=== PATIENT | male | born 1965 | race American Indian/Alaskan Native ===

== ENCOUNTER 2021-03-10 16:15 | Emergency (ER) | payer SELFPAY ==
--- NOTE | 2021-03-10 20:02 | Emergency Department Report ---
ED Male HPI - General Chief complaint: Urogenital-Male Stated complaint: PAIN WHEN URINATING Time Seen by Provider: 03/10/21 19:56 Source: patient Mode of arrival: Ambulatory Limitations: No Limitations - History of Present Illness Initial comments: 56-year-old male with a past medical history of hypertension, but noncompliant with medication for about 3 years presents to the ER today with complaints of urinary frequency, hesitancy, urgency and dysuria as well as suprapubic abdominal discomfort. Patient states that his symptoms started couple days ago. He denies any associated back pain or flank pain, nausea, vomiting, fever, chills, testicular pain or swelling. He denies any penile discharge. He denies any known history of prostate issues. MD Complaint: dysuria, other (Urinary frequency and urgency) -: days(s) - Related Data Previous Rx's Medication Instructions Recorded Last Taken Type Amlodipine Besylate [Norvasc] 5 mg PO DAILY #30 tablet 03/10/21 Unknown Rx Allergies Allergy/AdvReac Type Severity Reaction Status Date / Time No Known Allergies Allergy Unverified 03/10/21 19:41 ED Review of Systems ROS: Stated complaint: PAIN WHEN URINATING Other details as noted in HPI Comment: All other systems reviewed and negative Constitutional: denies: chills, fever Eyes: denies: eye pain, eye discharge, vision change ENT: denies: ear pain, throat pain, dental pain, hearing loss, epistaxis, congestion Respiratory: denies: cough, shortness of breath, SOB with exertion, SOB at rest, wheezing Cardiovascular: denies: chest pain, palpitations Gastrointestinal: abdominal pain. denies: nausea, vomiting, diarrhea, constipation, hematemesis, melena, hematochezia Genitourinary: urgency, dysuria, frequency, other (Hesitancy). denies: hematuria, discharge, testicular pain, testicular mass Musculoskeletal: denies: back pain, joint swelling, arthralgia, myalgia Skin: denies: rash, lesions, change in color, change in hair/nails, pruritus Neurological: denies: headache, weakness, numbness, paresthesias, confusion, abnormal gait, vertigo Psychiatric: denies: anxiety, depression, auditory hallucinations, visual hallucinations, homicidal thoughts, suicidal thoughts Hematological/Lymphatic: denies: easy bleeding, easy bruising, swollen glands ED Past Medical Hx - Past Medical History Previous Medical History?: Yes Hx Hypertension: Yes - Medications Home Medications: Home Medications Medication Instructions Recorded Confirmed Last Taken Type Amlodipine Besylate [Norvasc] 5 mg PO DAILY #30 tablet 03/10/21 Unknown Rx ED Physical Exam - General Limitations: No Limitations General appearance: alert, in no apparent distress - Head Head exam: Present: atraumatic, normocephalic, normal inspection - Eye Eye exam: Present: normal appearance, PERRL, EOMI Pupils: Present: normal accommodation - ENT ENT exam: Present: normal exam, mucous membranes moist - Respiratory Respiratory exam: Absent: respiratory distress - Cardiovascular Cardiovascular Exam: Present: regular rate, normal rhythm, normal heart sounds - GI/Abdominal GI/Abdominal exam: Present: soft, tenderness (Mild suprapubic abdominal tenderness without guarding or rebound). Absent: distended - Neurological Exam Neurological exam: Present: alert, oriented X3, CN II-XII intact, normal gait - Psychiatric Psychiatric exam: Present: normal affect, normal mood - Skin Skin exam: Present: intact ED Course Vital Signs 03/10/21 03/10/21 03/10/21 19:42 20:56 22:50 Temperature 98.2 F 97.6 F Pulse Rate 102 H 81 Respiratory 16 18 18 Rate Blood Pressure 191/109 Blood Pressure 157/100 [Left] O2 Sat by Pulse 98 95 Oximetry ED Medical Decision Making - Lab Data Result diagrams: 03/10/21 21:48 03/10/21 21:48 - Medical Decision Making 2132: Post void bladder scan shows a residual of 1000ml Bravo catheter with leg bag ordered. 2146: Patient feeling much better after Bravo placement. Bravo bag so fat has 700cc urine . CBC and CMP pending 2230: CMP and CBC unremarkable. repeat UA from cath does not suggest UTI. repeat abdominal exam show soft non tender abdomen. Discussed lab results with patient. Informed him that he will be discharged home with a Bravo catheter in place with a leg bag and recommend that he follows up with the urologist next week for further evaluation. Patient expressed understanding and agree with plan. Patient was stable at time of discharge Critical care attestation.: If time is entered above; I have spent that time in minutes in the direct care of this critically ill patient, excluding procedure time. ED Disposition Clinical Impression: Urinary retention, Uncontrolled hypertension, Non compliance w medication regimen Disposition: HOME / SELF CARE / HOMELESS Is pt being admited?: No Does the pt Need Aspirin: No Condition: Stable Instructions: Acute Urinary Retention, Male, [id number], Managing Your Hypertension, Hypertension, Adult, Hypertension (ED) Additional Instructions: Recommend that you keep the Bravo catheter with a leg bag in place until you can follow-up with a urologist. Follow-up with a urologist given any discharge instructions next week. It is important that you take the blood pressure medication prescribed to you today. Follow-up with your primary care doctor for continued monitoring of your high blood pressure. Return to the ER if your symptoms changes or worsens in any way. Prescriptions: Amlodipine Besylate [Norvasc] 5 mg PO DAILY #30 tablet Referrals: TITI MALDONADO MD [Staff Physician] - 3-5 Days ZAID RIGGS MD [Staff Physician] - 3-5 Days Time of Disposition: 22:22
[2021-03-10 20:25] LABS: Bilirubin,Urine NEG (Negative); Blood,Urine SM (Negative); Color,Urine Yellow (Yellow); Urobilinogen,Urine < 2.0 mg/dL (<2.0)
[2021-03-10] MEDS ORDERED: ACETAMINOPHEN 500 MG TAB PO ONE (20:51)
[2021-03-10 22:03] LABS: Basophils % (Auto) 0.4 % (0.0-1.8); Eosinophils % (Auto) 0.7 % (0.0-4.3); Hematocrit 42.4 % (35.5-45.6); Hemoglobin 14.3 gm/dl (11.8-15.2); Lymphocytes # (Auto) 1.9 K/mm3 (1.2-5.4); Lymphocytes % (Auto) 27.8 % (13.4-35.0); Mean Corpuscular HGB Conc 34 % (32-34); Mean Corpuscular Volume 84 fl (84-94); Monocytes # (Auto) 0.7 K/mm3 (0.0-0.8); Monocytes % (Auto) 9.7 % (0.0-7.3); Platelet Count 174 K/mm3 (140-440); Red Blood Count 5.05 M/mm3 (3.65-5.03); Red Cell Distribution Width 13.2 % (13.2-15.2)
[2021-03-10 22:23] LABS: Alanine Aminotransferase 42 units/L (7-56); Albumin 4.5 g/dL (3.9-5); BUN/Creatinine Ratio 13; Blood Urea Nitrogen 10 mg/dL (9-20); Calcium 9.8 mg/dL (8.4-10.2); Hemolysis Index 73
[2021-03-10 22:30] LABS: Bilirubin,Urine NEG (Negative); Blood,Urine SM (Negative); Color,Urine Straw (Yellow); Urobilinogen,Urine < 2.0 mg/dL (<2.0)
[2021-03-11 01:05] VITALS: BP 157/100
== END 2021-03-10 22:50 | disposition home or self-care (01) ==
LOC: ED 16:15
DX: R33.9 Retention of urine, unspecified (principal); I10 Essential (primary) hypertension; Z91.14 Patient's other noncompliance with medication regimen; Z79.899 Other long term (current) drug therapy
CPT/HCPCS: 36415; 80053; 81001; 82962; 85025

== ENCOUNTER 2021-05-10 10:22 | Outpatient (CLI) | payer OTHER ==
[2021-05-10 11:07] LABS: Alanine Aminotransferase 22 units/L (7-56); Albumin 4.6 g/dL (3.9-5); BUN/Creatinine Ratio 10; Blood Urea Nitrogen 8 mg/dL (9-20); Calcium 9.6 mg/dL (8.4-10.2); Chol/HDL Ratio 4.68 %; HDL Cholesterol 48 mg/dL (40-59); Hemolysis Index 5; LDL Cholesterol,Direct 152 mg/dL (50-130)
== END 2021-05-10 10:23 | disposition home or self-care (01) ==
LOC: LAB 10:22
PROVIDERS: ATTEND Family Medicine
DX: Z12.5 Encounter for screening for malignant neoplasm of prostate (principal)
CPT/HCPCS: 36415; 80053; 80061; 84153